=== PATIENT | male | born 1965 | race African-American/Black ===

== ENCOUNTER 2019-03-25 19:46 | Emergency (ER) | payer OTHER ==
[2019-03-25 20:00] VITALS: BP 128/74; PULSE 84; RESP 18; TEMP 98.6
--- NOTE | 2019-03-25 20:21 | ED ---
Wound/Laceration HPI - General Chief Complaint: Wound/Laceration Stated Complaint: Puncture Wound Time Seen by Provider: 03/25/19 20:03 Source: patient, RN notes reviewed, old records reviewed Mode of arrival: ambulatory Limitations: no limitations - History of Present Illness Initial Comments: This is a 53-year-old male the ER for evaluation resents today for evaluation of bleeding, patient is being found in his underwear after a fall earlier today. Patient is diabetic severe low blood sugar tach he did fall backwards onto some metal breath that time states that he just notices pants rwere ripped, patient states that later on in the day he went to bathroom and noticed some blood in the toilet. He does not have any symptoms lightheadedness dizziness or weakness and tetanus is up-to-date. -: hour(s) 1 - abrasion, puncture 2 - [address]: [address] Patient Tetanus UTD: Yes Context: accidental (low blood sugar) Associated Symptoms: none - Related Data Allergies Allergy/AdvReac Type Severity Reaction Status Date / Time No Known Allergies Allergy Verified 03/25/19 20:00 Review of Systems ROS Statement: Those systems with pertinent positive or pertinent negative responses have been documented in the HPI. ROS Other: All systems not noted in ROS Statement are negative. Past Medical History Past Medical History: Diabetes Mellitus History of Any Multi-Drug Resistant Organisms: None Reported Past Surgical History: No Surgical Hx Reported Past Psychological History: No Psychological Hx Reported Smoking Status: Current every day smoker Past Alcohol Use History: None Reported Past Drug Use History: None Reported General Exam Limitations: no limitations General appearance: alert, in no apparent distress Head exam: Present: atraumatic, normocephalic, normal inspection Eye exam: Present: normal appearance, PERRL, EOMI. Absent: scleral icterus, c onjunctival injection, periorbital swelling ENT exam: Present: normal exam, mucous membranes moist Neck exam: Present: normal inspection. Absent: tenderness, meningismus, lymphadenopathy Respiratory exam: Present: normal lung sounds bilaterally. Absent: respiratory distress, wheezes, rales, rhonchi, stridor Cardiovascular Exam: Present: regular rate, normal rhythm, normal heart sounds. Absent: systolic murmur, diastolic murmur, rubs, gallop, clicks GI/Abdominal exam: Present: soft, normal bowel sounds. Absent: distended, tenderness, guarding, rebound, rigid Rectal exam: Present: other (Patient does have abrasion puncture wound to left blood tox area as well as 2 abrasions to right butt cheeksignificant bleeding currently and no gaping) Extremities exam: Present: normal inspection, full ROM, normal capillary refill. Absent: tenderness, pedal edema, joint swelling, calf tenderness Back exam: Present: normal inspection Neurological exam: Present: alert, oriented X3, CN II-XII intact Psychiatric exam: Present: normal affect, normal mood Skin exam: Present: warm, dry, intact, normal color. Absent: rash Course Vital Signs 03/25/19 19:56 Temperature 98.6 F Pulse Rate 84 Respiratory 18 Rate Blood Pressure 128/74 O2 Sat by Pulse 99 Oximetry Medical Decision Making - Medical Decision Making 53 male the ER for evaluation patient does say for having a low blood sugar tach and following falling backwards. Patient unsure of any of the events surrounding the injury but he did sustain a puncture wound to his blood tox, no suturable wound, no bleeding. Patient given some wound care instructions and can be discharged home Disposition Clinical Impression: Laceration, Fall, Puncture wound of buttock Disposition: HOME SELF-CARE Condition: Good Instructions (If sedation given, give patient instructions): Puncture Wound (ED) Is patient prescribed a controlled substance at d/c from ED?: No Referrals: [facility] [Primary Care Provider] - 1-2 days
[2019-03-25] MEDS ORDERED: DIPH,PERTUS(ACELL)TETVAC-LF 0.5 ML VIAL IM ONE (20:53)
--- NOTE | 2019-03-28 06:00 | CDI ---
Documentation Clarification OP Dear Catarino GROSS, DO Please provide laceration specific location. Thank you, Fran Cerda Window Assembler If you have any questions, please contact Pipe Fitter Supervisor at [phone] [facility]
== END 2019-03-25 21:22 | disposition home or self-care (01) ==
LOC: EC 19:46
DX: S31.811A Laceration without foreign body of right buttock, initial encounter (principal); S31.823A Puncture wound without foreign body of left buttock, initial encounter; E11.65 Type 2 diabetes mellitus with hyperglycemia; F17.200 Nicotine dependence, unspecified, uncomplicated; Z23 Encounter for immunization; W19.XXXA Unspecified fall, initial encounter; Y92.009 Unspecified place in unspecified non-institutional (private) residence as the place of occurrence of the external cause
CPT/HCPCS: 90471; 90715; 99283

== ENCOUNTER 2020-03-10 14:09 | Inpatient (IN) | payer OTHER ==
[2020-03-10] MEDS ORDERED: SODIUM CHLORIDE 0.9% 1,000 ML IV ONE ×2 (14:40→15:26)
--- NOTE | 2020-03-10 14:42 | ED ---
General Adult HPI - General Chief complaint: Recheck/Abnormal Lab/Rx Stated complaint: Hyperglycemia Time Seen by Provider: 03/10/20 14:17 Source: patient, EMS, RN notes reviewed, old records reviewed Mode of arrival: EMS Limitations: no limitations - History of Present Illness Initial comments: 54-year-old male, type I diabetic presenting for evaluation of elevated blood sugar. Patient has been off of his insulin for the past 3 days. He states that he is going through some "life transitions", and this is why he is not on his insulin currently. He reports nausea without vomiting. No fever. No chest pain. He denies suicide attempt but does admit to some depression. - Related Data Home Medications Medication Instructions Recorded Confirmed Insulin Glargine,Hum.rec.anlog 20 unit SQ BID 03/25/19 03/25/19 [Basaglar Kwikpen U-100] Insulin Lispro [Admelog Solostar] See Protocol SQ AC-TID 03/25/19 03/25/19 Allergies Allergy/AdvReac Type Severity Reaction Status Date / Time No Known Allergies Allergy Verified 03/10/20 14:17 Review of Systems ROS Statement: Those systems with pertinent positive or pertinent negative responses have been documented in the HPI. ROS Other: All systems not noted in ROS Statement are negative. Past Medical History Past Medical History: Diabetes Mellitus, Hypertension Additional Past Medical History / Comment(s): Type 1 DM History of Any Multi-Drug Resistant Organisms: None Reported Past Surgical History: No Surgical Hx Reported Past Psychological History: Anxiety, Depression Smoking Status: Current every day smoker Past Alcohol Use History: Abuse, Heavy Past Drug Use History: Cocaine General Exam Limitations: no limitations General appearance: alert, in no apparent distress Head exam: Present: atraumatic, normocephalic Eye exam: Present: normal appearance, PERRL ENT exam: Present: mucous membranes dry Neck exam: Present: normal inspection. Absent: tenderness, meningismus Respiratory exam: Present: normal lung sounds bilaterally. Absent: respiratory distress, wheezes Cardiovascular Exam: Present: regular rate, normal rhythm GI/Abdominal exam: Present: soft. Absent: distended, tenderness, guarding Extremities exam: Present: normal inspection, normal capillary refill. Absent: pedal edema, joint swelling Neurological exam: Present: alert, oriented X3, CN II-XII intact. Absent: motor sensory deficit Psychiatric exam: Present: depressed, flat affect Skin exam: Present: warm, dry, intact. Absent: cyanosis, diaphoretic Course Vital Signs 03/10/20 14:12 Temperature 98.4 F Pulse Rate 89 Respiratory 16 Rate Blood Pressure 113/70 O2 Sat by Pulse 94 L Oximetry EKG Findings - EKG Comments: EKG Findings:: EKG: Normal sinus rhythm, right bundle-branch block, rate of 82, AR interval 146, QRS duration 136, QTC 479, no old for comparison, T-wave inversion in the precordial leads V2 and V3. Medical Decision Making - Medical Decision Making 54-year-old male with type 1 diabetes presenting with elevated blood sugar, off of his insulin. Sugar is 484, he has and mild anion gap acidosis with a CO2 of 18. Has a normal pH. He does have ketones in his urine but his acetone is negative. This represents a mild diabetic ketoacidosis wit lactic acidosis. He is given 2 liters of normal saline emergency department as well as IV insulin. Case is discussed with Dr. Andrew, she will admit the patient. I feel as lactic acidosis is related to dehydration and volume loss rather than infectious process. Diagnosis: Dehydration, hyperglycemia, lactic acidosis. - Lab Data Result diagrams: 03/10/20 14:18 03/10/20 14:18 Lab Results 03/10/20 03/10/20 03/10/20 Range/Units 14:18 14:18 14:18 WBC 9.4 (3.8-10.6) k/uL RBC 4.44 (4.30-5.90) m/uL Hgb 14.3 (13.0-17.5) gm/dL Hct 43.5 (39.0-53.0) % MCV 98.1 (80.0-100.0) fL MCH 32.2 (25.0-35.0) pg MCHC 32.8 (31.0-37.0) g/dL RDW 12.1 (11.5-15.5) % Plt Count 219 (150-450) k/uL Neutrophils % 83 % Lymphocytes % 8 % Monocytes % 6 % Eosinophils % 0 % Basophils % 1 % Neutrophils # 7.9 H (1.3-7.7) k/uL Lymphocytes # 0.7 L (1.0-4.8) k/uL Monocytes # 0.6 (0-1.0) k/uL Eosinophils # 0.0 (0-0.7) k/uL Basophils # 0.1 (0-0.2) k/uL PT (9.0-12.0) sec INR (<1.2) APTT (22.0-30.0) sec VBG pH 7.33 (7.31-7.41) VBG pCO2 41 (37-51) mmHg VBG HCO3 21 L (24-28) mmol/L Sodium 131 L (137-145) mmol/L Potassium 4.6 (3.5-5.1) mmol/L Chloride 96 L (98-107) mmol/L Carbon Dioxide 18 L (22-30) mmol/L Anion Gap 17 mmol/L BUN 20 (9-20) mg/dL Creatinine 1.00 (0.66-1.25) mg/dL Est GFR (CKD-EPI)AfAm >90 (>60 ml/min/1.73 sqM) Est GFR (CKD-EPI)NonAf 84 (>60 ml/min/1.73 sqM) Glucose 484 H (74-99) mg/dL Plasma Lactic Acid Tyler (0.7-2.0) mmol/L Calcium 9.0 (8.4-10.2) mg/dL Magnesium 1.7 (1.6-2.3) mg/dL Total Bilirubin 1.6 H (0.2-1.3) mg/dL AST 29 (17-59) U/L ALT 24 (4-49) U/L Alkaline Phosphatase 122 (38-126) U/L Total Protein 6.7 (6.3-8.2) g/dL Albumin 4.1 (3.5-5.0) g/dL Urine Color Urine Appearance (Clear) Urine pH (5.0-8.0) Ur Specific [place] (1.001-1.035) Urine Protein (Negative) Urine Glucose (UA) (Negative) Urine Ketones (Negative) Urine Blood (Negative) Urine Nitrite (Negative) Urine Bilirubin (Negative) Urine Urobilinogen (<2.0) mg/dL Ur Leukocyte Esterase (Negative) Serum Alcohol 58 mg/dL Acetone, Qual Negative (Negative) 03/10/20 03/10/20 03/10/20 Range/Units 14:19 14:31 14:31 WBC (3.8-10.6) k/uL RBC (4.30-5.90) m/uL Hgb (13.0-17.5) gm/dL Hct (39.0-53.0) % MCV (80.0-100.0) fL MCH (25.0-35.0) pg MCHC (31.0-37.0) g/dL RDW (11.5-15.5) % Plt Count (150-450) k/uL Neutrophils % % Lymphocytes % % Monocytes % % Eosinophils % % Basophils % % Neutrophils # (1.3-7.7) k/uL Lymphocytes # (1.0-4.8) k/uL Monocytes # (0-1.0) k/uL Eosinophils # (0-0.7) k/uL Basophils # (0-0.2) k/uL PT 9.8 (9.0-12.0) sec INR 0.9 (<1.2) APTT 21.5 L (22.0-30.0) sec VBG pH (7.31-7.41) VBG pCO2 (37-51) mmHg VBG HCO3 (24-28) mmol/L Sodium (137-145) mmol/L Potassium (3.5-5.1) mmol/L Chloride (98-107) mmol/L Carbon Dioxide (22-30) mmol/L Anion Gap mmol/L BUN (9-20) mg/dL Creatinine (0.66-1.25) mg/dL Est GFR (CKD-EPI)AfAm (>60 ml/min/1.73 sqM) Est GFR (CKD-EPI)NonAf (>60 ml/min/1.73 sqM) Glucose (74-99) mg/dL Plasma Lactic Acid Tyler 3.8 H* (0.7-2.0) mmol/L Calcium (8.4-10.2) mg/dL Magnesium (1.6-2.3) mg/dL Total Bilirubin (0.2-1.3) mg/dL AST (17-59) U/L ALT (4-49) U/L Alkaline Phosphatase (38-126) U/L Total Protein (6.3-8.2) g/dL Albumin (3.5-5.0) g/dL Urine Color Light Yellow Urine Appearance Clear (Clear) Urine pH 5.0 (5.0-8.0) Ur Specific [place] 1.033 (1.001-1.035) Urine Protein Negative (Negative) Urine Glucose (UA) 4+ H (Negative) Urine Ketones 2+ H (Negative) Urine Blood Negative (Negative) Urine Nitrite Negative (Negative) Urine Bilirubin Negative (Negative) Urine Urobilinogen <2.0 (<2.0) mg/dL Ur Leukocyte Esterase Negative (Negative) Serum Alcohol mg/dL Acetone, Qual (Negative) Critical Care Time Critical Care Time: Yes Total Critical Care Time: 35 Disposition Clinical Impression: Hyperglycemia, Lactic acidosis, Dehydration Disposition: ADMITTED IP TO THIS [facility] Condition: Stable Is patient prescribed a controlled substance at d/c from ED?: No Referrals: [facility] [Primary Care Provider] - 1-2 days Decision to Admit Reason: Admit from EC Decision Date: 03/10/20 Decision Time: 15:38
[2020-03-10 14:43] LABS: VBG PH 7.33 (7.31-7.41)
[2020-03-10 14:44] LABS: Basophils # (A) 0.1 k/uL (0-0.2); Basophils % (A) 1 %; Eosinophils % (A) 0 %; HCT 43.5 % (39.0-53.0); HGB 14.3 gm/dL (13.0-17.5); Lymphocytes # (A) 0.7 k/uL (1.0-4.8); Lymphocytes % (A) 8 %; MCH 32.2 pg (25.0-35.0); MCHC 32.8 g/dL (31.0-37.0); MCV 98.1 fL (80.0-100.0); Mean Platelet Volume 6.8; Monocytes # (A) 0.6 k/uL (0-1.0); Monocytes % (A) 6 %; Neutrophils # (A) 7.9 k/uL (1.3-7.7); Neutrophils % (A) 83 %; Platelet Count 219 k/uL (150-450); RBC 4.44 m/uL (4.30-5.90); RDW 12.1 % (11.5-15.5); WBC 9.4 k/uL (3.8-10.6)
[2020-03-10 14:53] LABS: ALT 24 U/L (4-49); AST 29 U/L (17-59); African American GFR (CKD) >90 (>60 ml/min/1.73 sqM); Albumin 4.1 g/dL (3.5-5.0); Alcohol 58 mg/dL; Alkaline Phosphatase 122 U/L (38-126); Anion Gap 17 mmol/L; Blood Urea Nitrogen 20 mg/dL (9-20); Carbon Dioxide 18 mmol/L (22-30); Chloride 96 mmol/L (98-107); Glucose 484 mg/dL (74-99); Magnesium 1.7 mg/dL (1.6-2.3); Non-African American GFR(CKD) 84 (>60 ml/min/1.73 sqM); Potassium 4.6 mmol/L (3.5-5.1); Sodium 131 mmol/L (137-145); Total Bilirubin 1.6 mg/dL (0.2-1.3); Total Protein 6.7 g/dL (6.3-8.2)
[2020-03-10 15:10] LABS: INR 0.9 (<1.2); Prothrombin Time 9.8 sec (9.0-12.0)
[2020-03-10 15:15] LABS: Appearance,Urine Clear (Clear); Bilirubin,Urine Negative (Negative); Blood,Urine Negative (Negative); Color,Urine Light Yellow; Glucose,Urine (UA) 4+ (Negative); Leukocyte Esterase,Urine Negative (Negative); Nitrite,Urine Negative (Negative); Protein,Urine Negative (Negative); Specific Gravity,Urine 1.033 (1.001-1.035); Urobilinogen,Urine <2.0 mg/dL (<2.0)
[2020-03-10 15:21] LABS: Partial Thromboplastin Time 21.5 sec (22.0-30.0)
[2020-03-10 15:21] LABS: Ketones,Urine 2+ (Negative)
[2020-03-10] MEDS ORDERED: INSULIN REGULAR 100 UNIT/ML VIAL IV ONE (15:32)
[2020-03-10] MEDS ORDERED: NALOXONE 0.4 MG/ML 1 ML VIAL IV PRN ×2 (15:33→16:26)
[2020-03-10] MEDS ORDERED: IBUPROFEN 400 MG TAB PO PRN (16:38)
[2020-03-10] MEDS ORDERED: ONDANSETRON 4 MG/2 ML VIAL IVP PRN (16:38)
[2020-03-10] MEDS ORDERED: ACETAMINOPHEN TAB 325 MG TAB PO PRN (16:38)
[2020-03-10] MEDS ORDERED: KETOROLAC 15 MG/ML 1 ML VIAL IVP PRN (16:46)
--- NOTE | 2020-03-10 16:49 | P.HPIM ---
History of Present Illness H&P Date: 03/10/20 Chief Complaint: high blood sugar Patient is a 54-year-old -Luxembourger male with a history of diabetes mellitus type 1 diagnosed at age 12 with last A1c 11 approximately 3 months ago, diabetic retinopathy, and illicit drug use who presented to the ER with complaints of abdominal pain and high sugars. He had not been taking his insulin for approximately 3 days he has lost his insulin. In the emergency department he underwent an extensive evaluation. His initial vital signs were within normal limits. Laboratory analysis showed sodium 131, carbon dioxide 18, anion gap 17, glucose 484, lactic acid 3.8, and total bilirubin 1.6. Urinalysis showed 4+ glucose with 2+ ketones. His acetone was positive. Alcohol level LVIII. VBG showed pH of 7.33. EKG showed normal sinus rhythm with a right bundle branch block at a rate of 82. He was subsequently diagnosed with mild DKA and arrangements were made for admission. Patient seen and examined at bedside. Lost his insulin and was without insulin for 3 days. He had been seeing Julianne at the [facility]'s clinic and awaiting a physician at the mental health. He reports that he then left the [facility] [place] has been gone for a little bit. He reports that he has been out of his psychiatric medications and has been self-medicating with alcohol and cocaine. He has been struggling with his depression and mental health. He awoke today and realized his sugars must be high and therefore proceeded to the emergency department area Complains of the following symptoms as developed over the last 3 days: + nauseated + Belly pain + increased thirst + increased urination Doesn't have a glucometer but this felt similar to when his sugar was running high in the past Poor appetite + blurry vision Feet aching with a throbbing He reports that he is a brittle diabetic and is often asymptomatic when his sugars drop. Typically he was taking 5 units with each meals plus biting feel for sugars greater than 150. He has also been taking basaglar 20 units twice daily. Review of Systems Pertinent positives and negatives as discussed in HPI, a complete review of systems was performed and all other systems are negative. Past Medical History Past Medical History: Diabetes Mellitus, Hypertension Additional Past Medical History / Comment(s): Type 1 DM, diabetic eye disease History of Any Multi-Drug Resistant Organisms: None Reported Additional Past Surgical History / Comment(s): retinal surgery Past Psychological History: Anxiety, Depression Smoking Status: Current every day smoker Past Alcohol Use History: Abuse, Heavy Past Drug Use History: Cocaine Additional History: 1/2 ppd. Binge drinking X 5 days had been a long times since drinking before that - Past Family History Mother Family Medical History: Diabetes Mellitus Medications and Allergies Home Medications Medication Instructions Recorded Confirmed Type Insulin Glargine,Hum.rec.anlog 20 unit SQ BID 03/25/19 03/25/19 History [Basaglar Kwikpen U-100] Insulin Lispro [Admelog Solostar] See Protocol SQ AC-TID 03/25/19 03/25/19 History Allergies Allergy/AdvReac Type Severity Reaction Status Date / Time No Known Allergies Allergy Verified 03/10/20 14:17 Physical Exam Osteopathic Statement: *. No significant issues noted on an osteopathic structural exam other than those noted in the History and Physical/Consult. Vitals: Vital Signs Temp Pulse Resp BP Pulse Ox 03/10/20 14:12 98.4 F 89 16 113/70 94 L Intake and Output 03/10/20 03/10/20 03/10/20 06:59 14:59 22:59 Other: Weight 65.864 kg General: ill appearing, mild distress, appears at stated age Derm: warm, dry Head: atraumatic, normocephalic, symmetric Eyes: EOMI, no lid lag, anicteric sclera, pupils equal round reactive to light ENT: Nose and ears atraumatic, no thrush, no pharyngeal erythema Neck: No thyromegaly, no cervical lymphadenopathy, trachea midline, supple Mouth: no lip lesion, mucus membranes dry Cardiovascular: S1S2 reg, no murmur, positive posterior tibial pulse bilateral, no edema, capillary refill less than 2 seconds, + skin tenting Lungs: clear to ascultation bilateral, no ronchi, no rales, no wheeze, no accessory muscle use Abdominal: soft, nontender to palpation, no guarding, no appreciable organomegaly, normal bowel sounds Ext: no gross muscle atrophy, muscle strength muscle strength 5 out of 5 in all 4 extremities, no contractures Neuro: CN II-XI grossly intact, light touch intact all 4 extremities, finger to nose within normal limits, Psych: Alert, oriented, withdrawn affect Results CBC & Chem 7: 03/10/20 14:18 09/07/20 14:18 Labs: Abnormal Lab Results - Last 24 Hours (Table) 03/10/20 03/10/20 03/10/20 Range/Units 14:18 14:18 14:18 Neutrophils # 7.9 H (1.3-7.7) k/uL Lymphocytes # 0.7 L (1.0-4.8) k/uL APTT (22.0-30.0) sec VBG HCO3 21 L (24-28) mmol/L Sodium 131 L (137-145) mmol/L Chloride 96 L (98-107) mmol/L Carbon Dioxide 18 L (22-30) mmol/L Glucose 484 H (74-99) mg/dL Plasma Lactic Acid Tyler (0.7-2.0) mmol/L Total Bilirubin 1.6 H (0.2-1.3) mg/dL Urine Glucose (UA) (Negative) Urine Ketones (Negative) 03/10/20 03/10/20 03/10/20 Range/Units 14:19 14:31 14:31 Neutrophils # (1.3-7.7) k/uL Lymphocytes # (1.0-4.8) k/uL APTT 21.5 L (22.0-30.0) sec VBG HCO3 (24-28) mmol/L Sodium (137-145) mmol/L Chloride (98-107) mmol/L Carbon Dioxide (22-30) mmol/L Glucose (74-99) mg/dL Plasma Lactic Acid Tyler 3.8 H* (0.7-2.0) mmol/L Total Bilirubin (0.2-1.3) mg/dL Urine Glucose (UA) 4+ H (Negative) Urine Ketones 2+ H (Negative) Thrombosis Risk Factor Assmnt - DVT/VTE Prophylaxis DVT/VTE Prophylaxis: Low risk, early ambulation encouraged Assessment and Plan Assessment: Diabetes mellitus Type I with DKA - IV fluids 2L bolus, IV insulin X 1, then 0.9NS - Recheck labs and if gap increasing or not coming down then transition to DKA protocol - check A1C - SSI, + home fixed dose - resume long acting insulin this evening Lactic acidosis - likely due to dehydration - IV fluids and recheck lactic acid Pseudohyponatremia - due to hyperglycemia - IVF - follow electrolytes Depression - Obtain med list from [facility] - Psych eval once medically stabilized Tobacco abuse - nicotine replacement - Cessation Binge drinking with cocaine use - patient does not drink on a regular bases - encourage to stop drinking and abstain from drug The patient is admitted with an anticipated greater than 2 midnight stay for evaluation of DKA. Surrogate decision-maker: Cousin DVT prophylaxis: Heparin Discussed with: patient, nursing, ed physician Anticipated discharge date: 2-[address]: home A total of 65 minutes was spent on the care of this complex patient more than 50% of the time was spent in counseling and care coordination.
[2020-03-10 17:20] LABS: Glucose,Whole Blood 285 mg/dL (75-99)
[2020-03-10] MEDS: INSULIN ASPART (NovoLOG) 100 UNIT/ML VIAL SQ SCH ×3 (17:31→21:40)
[2020-03-10] MEDS: HYDROcodone/APAP 5-325MG 1 EACH TAB PO PRN (17:31)
[2020-03-10] MEDS: SODIUM CHLORIDE 0.9% 1,000 ML IV SCH (18:03)
[2020-03-10] MEDS ORDERED: LORazepam 2 MG/ML INJ IV PRN (18:09)
[2020-03-10] MEDS: NICOTINE 21MG/24HR PATCH TRANSDERM SCH (18:26)
[2020-03-10 19:07] LABS: African American GFR (CKD) >90 (>60 ml/min/1.73 sqM); Anion Gap 9 mmol/L; Blood Urea Nitrogen 20 mg/dL (9-20); Calcium 8.3 mg/dL (8.4-10.2); Carbon Dioxide 22 mmol/L (22-30); Chloride 100 mmol/L (98-107); Glucose 379 mg/dL (74-99); Magnesium 1.7 mg/dL (1.6-2.3); Non-African American GFR(CKD) >90 (>60 ml/min/1.73 sqM); Potassium 4.6 mmol/L (3.5-5.1); Sodium 131 mmol/L (137-145)
[2020-03-10 19:45] LABS: Glucose,Whole Blood 334 mg/dL (75-99)
[2020-03-10] MEDS: INSULIN DETEMIR (LEVEMIR) 100 UNIT/ML SYR SQ SCH (21:41)
[2020-03-10 22:14] LABS: African American GFR (CKD) >90 (>60 ml/min/1.73 sqM); Anion Gap 7 mmol/L; Blood Urea Nitrogen 22 mg/dL (9-20); Calcium 8.2 mg/dL (8.4-10.2); Carbon Dioxide 24 mmol/L (22-30); Chloride 97 mmol/L (98-107); Glucose 448 mg/dL (74-99); Non-African American GFR(CKD) >90 (>60 ml/min/1.73 sqM); Potassium 5.4 mmol/L (3.5-5.1); Sodium 128 mmol/L (137-145)
[2020-03-10 22:58] LABS: Urine Alcohol Positive (Negative); Urine Barbiturate Negative (Negative); Urine Cocaine Positive (Negative); Urine Methadone Negative (Negative); Urine Opiates Negative (Negative); Urine Phencyclidine Negative (Negative)
[2020-03-11 06:12] LABS: Glucose,Whole Blood 287 mg/dL (75-99)
[2020-03-11] MEDS: SODIUM CHLORIDE 0.9% 1,000 ML IV SCH ×4 (07:11→20:07)
[2020-03-11] MEDS: INSULIN DETEMIR (LEVEMIR) 100 UNIT/ML SYR SQ SCH ×2 (07:12→23:01)
[2020-03-11] MEDS: INSULIN ASPART (NovoLOG) 100 UNIT/ML VIAL SQ SCH ×7 (07:12→20:10)
[2020-03-11 08:12] LABS: HCT 42.5 % (39.0-53.0); HGB 13.9 gm/dL (13.0-17.5); MCHC 32.7 g/dL (31.0-37.0); MCV 97.7 fL (80.0-100.0); Mean Platelet Volume 6.5; Platelet Count 212 k/uL (150-450); RBC 4.35 m/uL (4.30-5.90); RDW 12.3 % (11.5-15.5)
[2020-03-11 08:35] LABS: ALT 22 U/L (4-49); AST 26 U/L (17-59); African American GFR (CKD) >90 (>60 ml/min/1.73 sqM); Albumin 3.3 g/dL (3.5-5.0); Alkaline Phosphatase 92 U/L (38-126); Anion Gap 6 mmol/L; Blood Urea Nitrogen 20 mg/dL (9-20); Calcium 8.3 mg/dL (8.4-10.2); Carbon Dioxide 25 mmol/L (22-30); Chloride 103 mmol/L (98-107); Glucose 309 mg/dL (74-99); Magnesium 1.7 mg/dL (1.6-2.3); Non-African American GFR(CKD) >90 (>60 ml/min/1.73 sqM); Phosphorus 3.1 mg/dL (2.5-4.5); Sodium 134 mmol/L (137-145); Total Bilirubin 0.6 mg/dL (0.2-1.3); Total Protein 5.8 g/dL (6.3-8.2)
[2020-03-11] MEDS: ENOXAPARIN 40 MG/0.4 ML SYRINGE SQ SCH (09:52)
[2020-03-11] MEDS: HYDROcodone/APAP 5-325MG 1 EACH TAB PO PRN (09:52)
[2020-03-11] MEDS: NICOTINE 21MG/24HR PATCH TRANSDERM SCH (09:54)
[2020-03-11 11:21] VITALS: BMI 22.4
--- NOTE | 2020-03-11 12:10 | P.CN ---
Psychiatric Consult - . Consult date: 03/11/20 Consult:: 03/11/20 12:03 IDENTIFYING DATA: This patient is a 54-year-old -[place]wegian male with a history of bipolar disorder who is currently living with a friend and has 1 kid is currently single and unemployed. HISTORY OF PRESENT ILLNESS: The patient presented to the hospital with complaints of elevated blood sugars in the 400 range. Patient claims that he's been off his insulin for approximately 3 days according to ER poor. Patient also stated in the ER that he was going to "life transitions" which is reason why he is not taking his medications including his insulin. Patient also endorsed depression. Psychiatry is consulted for depression. Patient was seen at the bedside and was agreeable to speak to script writer. Patient was calm and appropriate during the interview and had a depressed affect. He was however future oriented and spoke positively about his medications. He states that he has been off his psych medications for over a year now and claims that he was on Seroquel and another medication however cannot remember the name. He states that he does have a diagnosis of bipolar disorder and does not have a psychiatrist of the time. He claims that he also has depression and anxiety. Patient claims that he has been self-medicating with cocaine and alcohol and had a recent binge with both substances. 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 He also states that he's been having relationship issues and his mother is currently sake and his father had earlier this year. He states that his sleep is "up and down" and he claims his mood is depressed.. At this time patient denies any suicidal or homical ideations, intent or plan. He currently denies any flight of ideas or goal-directed behavior. He did report a vague history of a manic episode in the past. Patient denies any auditory, visual hallucinations and denies any paranoia or delusions. Patients admits to using cocaine and alcohol as stated above. Patient also admits to smoking cigarettes daily. PAST PSYCHIATRIC HISTORY: Patient has a a history of anxiety, bipolar disorder/depression.. Patient states that his previous on Seroquel and another medication however he does not know the name. He claims that he has been admitted to a psychiatric hospital twice in the past and the last time was 2 years ago in [place]. He states he does not have an outpatient psychiatrist for follow-up with "Julianne at [facility]". Patient denies any history of suicide attempts in the past. PAST MEDICAL HISTORY: Diabetes mellitus and hypertension. ALLERGIES: as per EMR. CHEMICAL DEPENDENCY HISTORY: as per HPI. FAMILY PSYCHIATRIC/SUBSTANCE USE HISTORY: denies SOCIAL HISTORY: Patient was born and raised in [facility] and claims that he completed his GED. 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 He denies any legal history and any history. He currently lives with her friend is single has 1 son.. MENTAL STATUS EXAM: General Appearance: Patient appears to be stated age is alert, directable, and attempts to be cooperative. Patient appears to have fair hygiene and grooming wearing hospital gown with fair eye contact. Behavior: Patient is calmly lying in bed without any agitated behavior. Attempts to be cooperative. Speech: Patient's speech is fluent and nonpressured. [place]. Mood/Affect: Patient reports their mood is "depressed", affect is congruent and constricted. Suicidality/Homicidality: Patient denies having any suicidal or homicidal ideation intent or plan. Perceptions: Patient denies any visual hallucinations and denies any auditory hallucinations Though content/process: There is no evidence of any delusional thought content and thought process is linear and goal-directed. Depressive content however is future oriented. Memory and concentration: AOX3, grossly intact for the purposes of this session. Can spell "WORLD" backwards Judgment and insight: Limited IMPRESSIONS: Bipolar disorder, currently depressed Cocaine abuse Alcohol abuse Nicotine dependence PLAN: -At this time patient DOES NOT meet criteria for inpatient psychiatric admission. -Would recommend the following medication changes/additions: We'll start Seroquel 50 mg daily at bedtime for mood stabilization/insomnia/depression. We' ll also start patient on Zoloft 50 mg daily for mood/anxiety. -Will continue to follow along tomorrow. -Social work to offer patient substance use resources and offer treatment options for this. mosaic worker also to help patient get connected with [facility] for outpatient psychiatric services. -Please contact with any questions. 03/11/20 12:06
[2020-03-11 12:24] LABS: Hemoglobin A1C 10.5 % (4.0-6.0)
[2020-03-11 12:30] LABS: Glucose,Whole Blood 97 mg/dL (75-99)
[2020-03-11] MEDS: SERTRALINE 50 MG TAB PO SCH (13:05)
--- NOTE | 2020-03-11 13:29 | P.PN ---
Subjective Progress Note Date: 03/11/20 Patient was seen and examined. No acute events overnight. Patient reports depressed mood but denies any suicidal ideation. Abdominal pain improved. No nausea or vomiting. He denies any chest pain, shortness breath or palpitations. Objective - Vital Signs Vital signs: Vital Signs Temp 98.1 F 03/11/20 12:00 Pulse 58 L 03/11/20 12:00 Resp 18 03/11/20 12:00 BP 125/79 03/11/20 12:00 Pulse Ox 97 03/11/20 12:00 Intake & Output 03/10/20 03/11/20 03/11/20 18:59 06:59 18:59 Intake Total 500 240 Balance 500 240 Weight 65.864 kg 72.9 kg 72.9 kg Intake: Oral 500 240 Other: Voiding Method Toilet # Voids 1 2 - Exam General: [non toxic], [no distress], [appears at stated age] Derm: [warm], [dry] Head: [atraumatic], [normocephalic], [symmetric] Eyes: [EOMI], [no lid lag], [anicteric sclera] Mouth: [no lip lesion], [mucus membranes moist] Cardiovascular: [S1S2 reg], [no murmur], [positive posterior tibial pulse bilateral], Lungs: [CTA bilateral], [no rhonchi, no rales] , [no accessory muscle use] Abdominal: [soft], [ nontender to palpation], [no guarding], [no appreciable organomegaly] Ext: [no gross muscle atrophy], [no edema], [no contractures] Neuro: [ CN II-XI grossly intact], [no focal neuro deficits] Psych: [Alert], [oriented], [flat affect] - Labs CBC & Chem 7: 03/11/20 07:43 03/11/20 07:43 Labs: Abnormal Lab Results - Last 24 Hours (Table) 03/10/20 03/10/20 03/10/20 Range/Units 14:18 14:18 14:18 Neutrophils # 7.9 H (1.3-7.7) k/uL Lymphocytes # 0.7 L (1.0-4.8) k/uL APTT (22.0-30.0) sec VBG HCO3 21 L (24-28) mmol/L Sodium 131 L (137-145) mmol/L Potassium (3.5-5.1) mmol/L Chloride 96 L (98-107) mmol/L Carbon Dioxide 18 L (22-30) mmol/L BUN (9-20) mg/dL Glucose 484 H (74-99) mg/dL POC Glucose (mg/dL) (75-99) mg/dL Hemoglobin A1c (4.0-6.0) % Plasma Lactic Acid Tyler (0.7-2.0) mmol/L Calcium (8.4-10.2) mg/dL Total Bilirubin 1.6 H (0.2-1.3) mg/dL Total Protein (6.3-8.2) g/dL Albumin (3.5-5.0) g/dL Urine Glucose (UA) (Negative) Urine Ketones (Negative) Urine Cocaine Screen (Negative) ng/mL Urine Alcohol (Negative) mg/dL 03/10/20 03/10/20 03/10/20 Range/Units 14:19 14:19 14:31 Neutrophils # (1.3-7.7) k/uL Lymphocytes # (1.0-4.8) k/uL APTT 21.5 L (22.0-30.0) sec VBG HCO3 (24-28) mmol/L Sodium (137-145) mmol/L Potassium (3.5-5.1) mmol/L Chloride (98-107) mmol/L Carbon Dioxide (22-30) mmol/L BUN (9-20) mg/dL Glucose (74-99) mg/dL POC Glucose (mg/dL) (75-99) mg/dL Hemoglobin A1c (4.0-6.0) % Plasma Lactic Acid Tyler (0.7-2.0) mmol/L Calcium (8.4-10.2) mg/dL Total Bilirubin (0.2-1.3) mg/dL Total Protein (6.3-8.2) g/dL Albumin (3.5-5.0) g/dL Urine Glucose (UA) 4+ H (Negative) Urine Ketones 2+ H (Negative) Urine Cocaine Screen Positive H (Negative) ng/mL Urine Alcohol Positive H (Negative) mg/dL 03/10/20 03/10/20 03/10/20 Range/Units 14:31 17:08 18:24 Neutrophils # (1.3-7.7) k/uL Lymphocytes # (1.0-4.8) k/uL APTT (22.0-30.0) sec VBG HCO3 (24-28) mmol/L Sodium 131 L (137-145) mmol/L Potassium (3.5-5.1) mmol/L Chloride (98-107) mmol/L Carbon Dioxide (22-30) mmol/L BUN (9-20) mg/dL Glucose 379 H (74-99) mg/dL POC Glucose (mg/dL) 285 H (75-99) mg/dL Hemoglobin A1c (4.0-6.0) % Plasma Lactic Acid Tyler 3.8 H* (0.7-2.0) mmol/L Calcium 8.3 L (8.4-10.2) mg/dL Total Bilirubin (0.2-1.3) mg/dL Total Protein (6.3-8.2) g/dL Albumin (3.5-5.0) g/dL Urine Glucose (UA) (Negative) Urine Ketones (Negative) Urine Cocaine Screen (Negative) ng/mL Urine Alcohol (Negative) mg/dL 03/10/20 03/10/20 03/11/20 Range/Units 19:44 21:40 06:10 Neutrophils # (1.3-7.7) k/uL Lymphocytes # (1.0-4.8) k/uL APTT (22.0-30.0) sec VBG HCO3 (24-28) mmol/L Sodium 128 L (137-145) mmol/L Potassium 5.4 H (3.5-5.1) mmol/L Chloride 97 L (98-107) mmol/L Carbon Dioxide (22-30) mmol/L BUN 22 H (9-20) mg/dL Glucose 448 H (74-99) mg/dL POC Glucose (mg/dL) 334 H 287 H (75-99) mg/dL Hemoglobin A1c (4.0-6.0) % Plasma Lactic Acid Tyler (0.7-2.0) mmol/L Calcium 8.2 L (8.4-10.2) mg/dL Total Bilirubin (0.2-1.3) mg/dL Total Protein (6.3-8.2) g/dL Albumin (3.5-5.0) g/dL Urine Glucose (UA) (Negative) Urine Ketones (Negative) Urine Cocaine Screen (Negative) ng/mL Urine Alcohol (Negative) mg/dL 03/11/20 03/11/20 Range/Units 07:43 07:43 Neutrophils # (1.3-7.7) k/uL Lymphocytes # (1.0-4.8) k/uL APTT (22.0-30.0) sec VBG HCO3 (24-28) mmol/L Sodium 134 L (137-145) mmol/L Potassium (3.5-5.1) mmol/L Chloride (98-107) mmol/L Carbon Dioxide (22-30) mmol/L BUN (9-20) mg/dL Glucose 309 H (74-99) mg/dL POC Glucose (mg/dL) (75-99) mg/dL Hemoglobin A1c 10.5 H (4.0-6.0) % Plasma Lactic Acid Tyler (0.7-2.0) mmol/L Calcium 8.3 L (8.4-10.2) mg/dL Total Bilirubin (0.2-1.3) mg/dL Total Protein 5.8 L (6.3-8.2) g/dL Albumin 3.3 L (3.5-5.0) g/dL Urine Glucose (UA) (Negative) Urine Ketones (Negative) Urine Cocaine Screen (Negative) ng/mL Urine Alcohol (Negative) mg/dL Assessment and Plan Assessment: Diabetes mellitus Type I with DKA -Decrease IVF to 75 mL per hour normal saline - A1C 10.5 - SSI, + home fixed dose - resume long acting insulin Pseudohyponatremia - due to hyperglycemia - IVF Depression - Started on Seroquel and Zoloft by psychiatry Tobacco abuse - nicotine replacement - Cessation Binge drinking with cocaine use - patient does not drink on a regular bases - encourage to stop drinking and abstain from drug [Discussed with psychiatry Dr. Elizondo, plans to observe overnight after starting Seroquel and Zoloft. Patient is pending clinical improvement. Likely DC in 1-2 days.]
[2020-03-11 16:48] LABS: Glucose,Whole Blood 141 mg/dL (75-99)
[2020-03-11 20:04] LABS: Glucose,Whole Blood 63 mg/dL (75-99)
[2020-03-11 20:19] LABS: Glucose,Whole Blood 83 mg/dL (75-99)
[2020-03-11] MEDS ORDERED: QUEtiapine 50 MG TAB PO SCH (21:00)
[2020-03-12 01:03] VITALS: RESP 16
[2020-03-12 01:55] LABS: Glucose,Whole Blood 221 mg/dL (75-99)
[2020-03-12 07:11] LABS: Glucose,Whole Blood 77 mg/dL (75-99)
[2020-03-12] MEDS: INSULIN ASPART (NovoLOG) 100 UNIT/ML VIAL SQ SCH ×4 (07:11→12:32)
[2020-03-12] MEDS: INSULIN DETEMIR (LEVEMIR) 100 UNIT/ML SYR SQ SCH (07:14)
[2020-03-12] MEDS: ENOXAPARIN 40 MG/0.4 ML SYRINGE SQ SCH (08:58)
[2020-03-12] MEDS: SERTRALINE 50 MG TAB PO SCH (08:58)
[2020-03-12] MEDS: SODIUM CHLORIDE 0.9% 1,000 ML IV SCH (08:58)
[2020-03-12] MEDS: NICOTINE 21MG/24HR PATCH TRANSDERM SCH (09:00)
[2020-03-12 10:56] VITALS: BP 124/68; TEMP 98.2
[2020-03-12 11:23] LABS: African American GFR (CKD) >90 (>60 ml/min/1.73 sqM); Anion Gap 4 mmol/L; Blood Urea Nitrogen 12 mg/dL (9-20); Calcium 8.7 mg/dL (8.4-10.2); Carbon Dioxide 27 mmol/L (22-30); Chloride 107 mmol/L (98-107); Glucose 50 mg/dL (74-99); Non-African American GFR(CKD) >90 (>60 ml/min/1.73 sqM); Potassium 4.1 mmol/L (3.5-5.1); Sodium 138 mmol/L (137-145)
[2020-03-12 12:03] LABS: Glucose,Whole Blood 166 mg/dL (75-99)
[2020-03-12 12:44] VITALS: PULSE 58
--- NOTE | 2020-03-12 13:36 | P.PN ---
Progress Note - Text Progress Note Date: 03/12/20 Interval History: Patient was seen today for psychiatric follow-up Regarding his bipolar disorder and medication noncompliance. Patient's nurse offer no overnight complaints and states that the patient has been doing better today. Patient was seen in his bed and agreeable to speak to fiction and nonfiction prose writer. Patient states that he got better sleep last night on the medications and stated that his anxiety and mood have been mildly improving. He claims that he is still feeling somewhat anxious about his next plan on where he will go. He spoke briefly about discharge and other follow-up appointments that he needs. He explained that he will be also getting diabetes supplies today to help him keep track of his blood sugars. He was fairly superficial with fiction and nonfiction prose writer about his drug use and claims that he does not want to go to rehab. He claims that his mood is "fine" denies any depression today. He claims that his appetite is fair. At this time patient denies any suicidal or homical ideations, intent or plan. Patient denies any auditory, visual hallucinations and denies any paranoia or delusions. Patient denies any side effects from the medications and has been compliant with meds. Mental Status Exam: General Appearance: Patient appears to be stated age is alert, directable, and attempts to be cooperative. Patient appears to have fair hygiene and grooming Behavior: Patient is calmly lying in bed without any agitated behavior. Attempts to be cooperative. Superficial at times. Speech: Patient's speech is fluent and nonpressured. [place]. Mood/Affect: Patient reports their mood is "better", affect is congruent and constricted. Suicidality/Homicidality: Patient denies having any suicidal or homicidal ideation intent or plan. Perceptions: Patient denies any visual hallucinations and denies any auditory hallucinations Though content/process: There is no evidence of any delusional thought content and thought process is linear and goal-directed. More future oriented today. Preoccupied at discharge and plans. Memory and concentration: AOX3, grossly intact for the purposes of this session. Judgment and insight: Limited, improving Assessment Bipolar disorder, currently depressed Cocaine abuse Alcohol abuse Nicotine dependence Plan: -At this time patient DOES NOT meet criteria for inpatient psychiatric admission. -Would recommend the following medication changes/additions: Continue with Seroquel 50 mg daily at bedtime for mood stabilization/insomnia/depression. Continue with Zoloft 50 mg daily for mood/anxiety. Unit Clerk spoke in detail about his medications and the need for compliance and also for outpatient follow-up. -Patient declined inpatient rehab when offered. nursery worker also to help patient get connected with [facility] for outpatient psychiatric services. -Psychiatrist signed off, Please contact with any questions.
--- NOTE | 2020-03-12 17:46 | P.DS ---
Providers Date of admission: 03/10/20 15:33 Expected date of discharge: 03/12/20 Attending physician: Holly Andrew DO Consults: 03/10/20 16:42 Consult Physician Routine Consulting Provider: Juan A Elizondo Consult Reason/Comments: depression Do you want consulting provider notified?: Yes Primary care physician: [facility] Course: Patient is a 54-year-old -[place] male with a history of diabetes mellitus type 1 diagnosed at age 12 with last A1c 11 approximately 3 months ago, diabetic retinopathy, and illicit drug use who presented to the ER with complaints of abdominal pain and high sugars. He had not been taking his insulin for approximately 3 days he has lost his insulin. In the emergency department he underwent an extensive evaluation. His initial vital signs were within normal limits. Laboratory analysis showed sodium 131, carbon dioxide 18, anion gap 17, glucose 484, lactic acid 3.8, and total bilirubin 1.6. Urinalysis showed 4+ glucose with 2+ ketones. His acetone was positive. Alcohol level LVIII. VBG showed pH of 7.33. EKG showed normal sinus rhythm with a right bundle branch block at a rate of 82. He was subsequently diagnosed with mild DKA and arrangements were made for admission. Patient was started on insulin drip according to DKA protocol. He was transitioned with IV insulin to subcutaneous insulin. His acidosis improved overnight and anion gap normalized. His abdominal pain significantly improved on day 2 of admission. His A1c was 10.5. Patient did endorse depressed mood. Psychiatry was consulted and recommended starting him on Seroquel and Zoloft. He was cleared for discharge from a psychiatric standpoint. Patient was seen and examined. No acute events overnight. Patient reports no abdominal pain. He denies any chest pain, shortness breath or palpitations. No fever or chills. No nausea or vomiting. General: [non toxic], [no distress], [appears at stated age] Derm: [warm], [dry] Head: [atraumatic], [normocephalic], [symmetric] Eyes: [EOMI], [no lid lag], [anicteric sclera] Mouth: [no lip lesion], [mucus membranes moist] Cardiovascular: [S1S2 reg], [no murmur], [positive posterior tibial pulse bilateral], Lungs: [CTA bilateral], [no rhonchi, no rales] , [no accessory muscle use] Abdominal: [soft], [ nontender to palpation], [no guarding], [no appreciable organomegaly] Ext: [no gross muscle atrophy], [no edema], [no contractures] Neuro: [ CN II-XI grossly intact], [no focal neuro deficits] Psych: [Alert], [oriented], [flat affect] Diabetes mellitus Type I with DKA -DC IVF and encourage hydration by mouth - A1C 10.5 - SSI, + home fixed dose - resume long acting insulin Depression - Started on Seroquel and Zoloft by psychiatry Tobacco abuse - nicotine replacement - Cessation Binge drinking with cocaine use - patient does not drink on a regular bases - encourage to stop drinking and abstain from drug Resolved: Hyponatremia [Patient cleared for discharge from psychiatric standpoint. Will get diabetic supplies and insulin to bedside prior to discharge. This complex discharge took about 35 minutes to complete.] Patient Condition at Discharge: Stable Plan - Discharge Summary New Discharge Prescriptions: New QUEtiapine [SEROquel] 50 mg PO HS #30 tab Sertraline [Zoloft] 50 mg PO DAILY #30 tab [place], Insulin Disposable [Bd Ultra-Fine Pen Needle 4mm 32g] 1 needle SQ DIRECTED #150 needle Alcohol Antiseptic Pads [Alcohol Swabs] 1 each TP 5XD #150 med..pad Lancets 1 each MC 5XD #150 each Blood Sugar Diagnostic [Test Strips] 1 each MC 5XD #150 strip Continue Insulin Lispro [Admelog Solostar] See Protocol SQ AC-TID #1 pen Insulin Lispro [Admelog Solostar] 5 units SQ AC-TID #4 pen Insulin Glargine,Hum.rec.anlog [Basaglar Kwikpen U-100] 20 unit SQ BID #5 pen Discharge Medication List Insulin Glargine,Hum.rec.anlog [Basaglar Kwikpen U-100] 20 unit SQ BID #5 pen 03/11/20 [Rx] Insulin Lispro [Admelog Solostar] 5 units SQ AC-TID #4 pen 03/11/20 [Rx] Insulin Lispro [Admelog Solostar] See Protocol SQ AC-TID #1 pen 03/11/20 [Rx] [place], Insulin Disposable [Bd Ultra-Fine Pen Needle 4mm 32g] 1 needle SQ DIRECTED #150 needle 03/11/20 [Rx] QUEtiapine [SEROquel] 50 mg PO HS #30 tab 03/11/20 [Rx] Sertraline [Zoloft] 50 mg PO DAILY #30 tab 03/11/20 [Rx] Alcohol Antiseptic Pads [Alcohol Swabs] 1 each TP 5XD #150 med..pad 03/12/20 [Rx] Blood Sugar Diagnostic [Test Strips] 1 each MC 5XD #150 strip 03/12/20 [Rx] Lancets 1 each MC 5XD #150 each 03/12/20 [Rx] Follow up Appointment(s)/Referral(s): Juan A Elizondo MD [Medical Doctor] - 1 Week [facility] [Primary Care Provider] - 1-[address] [facility] [NON-STAFF] - 1 Week Patient Instructions/Handouts: Diabetic Ketoacidosis (GEN), Diabetic Hyperglycemia (DC) Activity/Diet/Wound Care/Special Instructions: Diet: Diabetic Follow-up PCP within 3 days of discharge. Follow-up with psychiatry within 1 week of discharge. Take all medications as advised. Discharge Disposition: HOME SELF-CARE Care Plan Goals (MU): [facility] ([facility]) phone intake appointment 03/14/20 at 9:30AM. [facility] staff Todd Edge will call patient at 9:30AM for intake appointment.
== END 2020-03-12 14:03 | disposition home or self-care (01) | DRG 639 ==
LOC: EC 14:09 → 3SCARD 15:33
PROVIDERS: ADMIT Internal Medicine; ATTEND Internal Medicine
DX: E10.10 Type 1 diabetes mellitus with ketoacidosis without coma (principal); F31.9 Bipolar disorder, unspecified; F17.200 Nicotine dependence, unspecified, uncomplicated; F41.9 Anxiety disorder, unspecified; I10 Essential (primary) hypertension; I45.10 Unspecified right bundle-branch block; E86.0 Dehydration; E10.319 Type 1 diabetes mellitus with unspecified diabetic retinopathy without macular edema; F14.10 Cocaine abuse, uncomplicated; F10.10 Alcohol abuse, uncomplicated; Z79.4 Long term (current) use of insulin; Z83.3 Family history of diabetes mellitus; Z91.14 Patient's other noncompliance with medication regimen
CPT/HCPCS: 36415; 80048; 80053; 80306; 80320; 81003; 82009; 82803; 83036; 83605; 83735; 84100; 85025; 85027; 85610; 85730; 93005; 96360; 99291